=== PATIENT | female | born 1980 | race Caucasian/White ===

== ENCOUNTER 2017-12-01 19:52 | Emergency (ER) | payer MEDICAID ==
[2017-12-01] MEDS: SOD CHLORIDE 0.9% 1,000 ML IV (20:36)
[2017-12-01] MEDS: ONDANSETRON 4 MG INJ IV ×2 (20:36→22:12)
[2017-12-01] MEDS: morphine 4 MG/ML VIAL IV ×2 (20:36→22:12)
[2017-12-01 20:41] LABS: URINE BLOOD (Dip) POC Negative (NEGATIVE); URINE GLUCOSE (Dip) POC Negative (NEGATIVE); URINE KETONES (Dip) POC 3+ (NEGATIVE); URINE LEUKOCYTE EST (Dip) POC Trace (NEGATIVE); URINE NITRITE (Dip) POC Negative (NEGATIVE); URINE TOTAL PROTEIN POC Negative (NEGATIVE)
[2017-12-01 20:41] LABS: URINE PH (Dip) POC 5.5 (5.0-8.5)
[2017-12-01 20:51] LABS: ABNORMAL IP MESSAGE 1; HEMATOCRIT 38.2 % (37.0-47.0); HEMOGLOBIN 13.2 g/dl (12.0-16.0); MEAN CORPUSCULAR HEMOGLOBIN 32.1 pg (29.0-33.0); MEAN CORPUSCULAR HGB CONC 34.6 g/dl (32.0-37.0); MEAN CORPUSCULAR VOLUME 92.9 fl (82.0-101.0); MEAN PLATELET VOLUME 10.1 fl (7.4-10.4); PLATELET COUNT 190 10^3/UL (140-415); RED BLOOD COUNT 4.11 10^6/ul (4.20-5.40); RED CELL DISTRIBUTION WIDTH 12.7 % (11.5-14.5)
[2017-12-01 20:51] LABS: WHITE BLOOD COUNT 11.4 10^3/ul (4.8-10.8)
[2017-12-01 20:53] LABS: POSITIVE DIFF @See below
[2017-12-01 20:55] LABS: ADD MAN DIFF? YES; ADD UMIC YES; UR ASCORBIC ACID NEGATIVE (NEGATIVE); UR BACTERIA FEW /HPF (NONE SEEN); UR BILIRUBIN (Dip) NEGATIVE (NEGATIVE); UR BLOOD (Dip) NEGATIVE (NEGATIVE); UR CLARITY CLOUDY (CLEAR); UR COLOR YELLOW (YELLOW); UR GLUCOSE (Dip) NEGATIVE (NEGATIVE); UR KETONES (Dip) 1+ mg/dL (NEGATIVE); UR LEUKOCYTE ESTERASE (Dip) 1+ Leu/ul (NEGATIVE); UR MUCUS FEW /HPF (NONE SEEN); UR NITRITE (Dip) NEGATIVE (NEGATIVE); UR RBC 1 /HPF (0-5); UR SPECIFIC GRAVITY (Dip) 1.026 (1.003-1.030); UR SQUAMOUS EPITHELIAL CELL MODERATE /HPF (FEW); UR TOTAL PROTEIN (Dip) NEGATIVE (NEGATIVE); UR UROBILINOGEN (Dip) NEGATIVE (NEGATIVE); UR WBC 14 /HPF (0-5)
[2017-12-01] MEDS: CEFTRIAXONE 1 GM/50 ML (PMX) 50 ML IVPB (21:17)
[2017-12-01 21:21] LABS: ALANINE AMINOTRANSFERASE 29 IU/L (13-69); ALBUMIN 4.4 g/dl (3.3-4.9); ALBUMIN/GLOBULIN RATIO 1.37; ALKALINE PHOSPHATASE 78 IU/L (42-121); ANION GAP 17 (8-16); ASPARTATE AMINO TRANSFERASE 19 IU/L (15-46); BILIRUBIN,INDIRECT 0.5 mg/dl (0-1.1); BILIRUBIN,TOTAL 0.5 mg/dl (0.2-1.3); BLOOD UREA NITROGEN 11 mg/dl (7-20); CALCIUM 8.5 mg/dl (8.4-10.2); CARBON DIOXIDE 22 mmol/L (21-31); CHLORIDE 104 mmol/L (97-110); CREATININE 0.67 mg/dl (0.44-1.00); GLUCOSE 160 mg/dl (70-220); LIPASE 44 U/L (23-300); POTASSIUM 3.7 mmol/L (3.5-5.1); SODIUM 139 mmol/L (135-144); TOTAL PROTEIN 7.6 g/dl (6.1-8.1)
[2017-12-01 21:41] LABS: ANISOCYTOSIS 1+ (0-0); LYMPHOCYTES #M 0.3 10^3/ul (0.8-2.9); LYMPHOCYTES % (M) 3 % (15-51); MONOCYTE #M 0.6 10^3/ul (0.3-0.9); MONOCYTES % (M) 6 % (0-11); PLATELET MORPHOLOGY COMMENT @See below; SEGMENTED NEUTROPHILS (M) % 91 % (39-77); SMUDGE%M 2 % (0-0)
== END 2017-12-01 23:02 | disposition home or self-care (01) ==
LOC: FTE 19:52
DX: N30.90 Cystitis, unspecified without hematuria (principal)
CPT/HCPCS: 36415; 80053; 81001; 81003; 83690; 85025; 96374; 96375; 96376; 99284-25

== ENCOUNTER 2018-07-25 20:12 | Emergency (ER) | payer MEDICAID ==
[2018-07-25] MEDS: KETOROLAC 60 MG INJ IM (22:22)
== END 2018-07-25 22:39 | disposition home or self-care (01) ==
LOC: FTE 20:12
DX: S46.812A Strain of other muscles, fascia and tendons at shoulder and upper arm level, left arm, initial encounter (principal); X58.XXXA Exposure to other specified factors, initial encounter; Y92.9 Unspecified place or not applicable
CPT/HCPCS: 81025; 96372; 99284-25

== ENCOUNTER 2018-12-13 06:16 | Emergency (ER) | payer MEDICAID ==
[2018-12-13] MEDS: IBUPROFEN 600 MG TAB PO (07:00)
== END 2018-12-13 07:04 | disposition home or self-care (01) ==
LOC: FTE 06:16
DX: M26.69 Other specified disorders of temporomandibular joint (principal); R40.2412 Glasgow coma scale score 13-15, at arrival to emergency department; I83.812 Varicose veins of left lower extremity with pain
CPT/HCPCS: 99282; Z7502